=== PATIENT | female | born 1940 | race Caucasian/White ===

== ENCOUNTER → 2016-06-19 | Outpatient (CLI) | payer MEDICARE ==
[~2016-06-19] MED LIST: ANTIVERT25 MG PO; ASPIRIN DELAYE325 MG PO; DEBROX 15ML 1515 ML OT; FLONASE0.05 MG/AC NAS; LIPITOR80 MG PO; VIBRAMYCIN HYC100 MG PO
== END | disposition home or self-care (01) ==
LOC: RAD 10:28
DX: I51.7 Cardiomegaly (principal); R05 Cough; I10 Essential (primary) hypertension; R09.89 Other specified symptoms and signs involving the circulatory and respiratory systems; F17.200 Nicotine dependence, unspecified, uncomplicated